=== PATIENT | female | born 1995 | race Caucasian/White ===

== ENCOUNTER 2018-11-30 00:35 | Emergency (ER) | payer MEDICAID ==
[~2018-11-30] VITALS: Ht 154.9 cm; Wt 100.4 kg
[2018-11-30 00:52] VITALS: Ht 154.9 cm; Wt 100.4 kg
[2018-11-30] MEDS ORDERED: ACET325T33 PO (06:02)
[2018-11-30] MEDS ORDERED: CEPH-443 PO (06:04)
[2018-11-30 06:34] VITALS: BP 113/74; PULSE 86; RESP 20
--- NOTE | 2018-12-13 07:22 | ERD ---
ER Documentation Chief Complaint Chief Complaint vag bleed tonight; LMP 09/18/18; stated 3mos HPI History of Present Illness: 23-year-old female with no past medical history coming in today with complaint of vaginal bleeding that started tonight. Patient reporting body with mild abdominal pain. Patient reports being approximately 3 months . No signs of anemia including palpitations, shortness of breath, weakness. No signs of hemorrhage: Patient is not soaking over more than 1 pad per hour. At home pharmacological/nonpharmacological treatment for symptoms: Denies Denies social concerns; Denies recent foreign travel ROS All systems reviewed and are negative except as per history of present illness. Medications Home Meds Active Scripts Ondansetron (Ondansetron Odt) 4 Mg Tab.rapdis, 4 MG PO Q6H PRN for NAUSEA AND/OR VOMITING, #10 TAB Prov:DISHIGRIKIANRANJITPYUR N PA-C 12/10/18 Nitrofurantoin Monohyd Macrocr* (Macrobid*) 100 Mg Capsr, 100 MG PO BID for 7 Days, CAP Prov:DISHIGRIKIANZEPYUR N PA-C 12/10/18 Cephalexin* (Keflex*) 500 Mg Capsule, 500 MG PO QID PRN for URINE INFECTION for 7 Days, CAP Prov:QUINN SMALL V WORK CAR OPERATOR 11/30/18 Acetaminophen* (Tylenol*) 325 Mg Tablet, 2 TAB PO Q8 PRN for PAIN AND OR ELEVATED TEMP, #20 TAB Prov:QUINN SMALL V WORK CAR OPERATOR 11/30/18 Allergies Allergies: Coded Allergies: No Known Allergy (Unverified , 11/30/18) PMhx/Soc Medical and Surgical Hx: pt denies Medical Hx, pt denies Surgical Hx Hx Alcohol Use: No Hx Substance Use: No Hx Tobacco Use: No Smoking Status: Never smoker FmHx Family History: No coronary disease Physical Exam Physical Exam const: No acute distress Head: Atraumatic Eyes: Normal Conjunctiva ENT: Normal External Ears, Nose and Mouth. Neck: Full range of motion. No meningismus. Resp: Clear to auscultation bilaterally Cardio: Regular rate and rhythm, no murmurs Abd: Soft, Tenderness to suprapubic, non distended. Normal bowel sounds. Patient obese. Unable to palpate fundus Skin: No petechiae or rashes Back: No midline or flank tenderness Ext: No cyanosis, or edema Neur: Awake and alert Psych: Normal Mood and Affect Results 24 hrs Laboratory Tests Test 11/30/18 03:50 White Blood Count 8.5 10^3/ul Red Blood Count 4.36 10^6/ul Hemoglobin 13.1 g/dl Hematocrit 39.1 % Mean Corpuscular Volume 89.7 fl Mean Corpuscular Hemoglobin 30.0 pg Mean Corpuscular Hemoglobin Concent 33.5 g/dl Red Cell Distribution Width 13.0 % Platelet Count 205 10^3/UL Mean Platelet Volume 11.4 fl Immature Granulocytes % 0.400 % Neutrophils % 73.0 % Lymphocytes % 19.8 % Monocytes % 5.7 % Eosinophils % 0.9 % Basophils % 0.2 % Nucleated Red Blood Cells % 0.0 /100WBC Immature Granulocytes # 0.030 10^3/ul Neutrophils # 6.2 10^3/ul Lymphocytes # 1.7 10^3/ul Monocytes # 0.5 10^3/ul Eosinophils # 0.1 10^3/ul Basophils # 0.0 10^3/ul Nucleated Red Blood Cells # 0.0 10^3/ul Urine Color RED Urine Clarity BLOODY Urine pH 6.0 Urine Specific [place] 1.030 Urine Ketones NEGATIVE mg/dL Urine Nitrite NEGATIVE mg/dL Urine Bilirubin 1+ mg/dL Urine Urobilinogen NEGATIVE mg/dL Urine Leukocyte Esterase 2+ Jose Luis/ul Urine Microscopic RBC > 182 /HPF Urine Microscopic WBC 49 /HPF Urine Squamous Epithelial Cells FEW /HPF Urine Bacteria FEW /HPF Urine Mucus MODERATE /HPF Urine Yeast (Budding) FEW /HPF Urine Hemoglobin 3+ mg/dL Urine Glucose NEGATIVE mg/dL Urine Total Protein 2+ mg/dl Beta HCG, Quantitative 06180.0 mIU/ml Procedures/MDM ED course includes a thorough examination and history. Medications: Acetaminophen Imaging: ob vaginal and abdominal ultrasound Labs: CBC, urinalysis, beta quantitative Low suspicion for life-threatening medical emergency. Low suspicion for gynecologic/obstetrical emergency requires hospitalization or immediate surgical intervention. Otherwise healthy patient presenting with constellation of symptoms likely representing vaginal bleeding during and urinary tract infection during as characterized by history, physical exam findings, imaging findings, lab findings. CBC:no e/o of systemic infection or severe anemia. Urinalysis showing WBCs, RBCs, bacteria, budding yeast hemoglobin. Beta quantitative is 16k , ultrasound imaging impression showing: IMPRESSION: Single live intrauterine gestation of approximately 13 weeks 6 days. Estimated date of delivery 06/01/2019. No apparent complications. RPTAT: HJBB x-[place]ato Bowns, Physician No respiratory distress, otherwise relatively well appearing and nontoxic. Patient educated on diagnoses, prescriptions, follow-up care, return precautions. Strict return precautions given for worsening condition; questions answered discharge. Disposition for discharge with followup in 2 days with PCP/clinic/electrician technician; strict return precautions given for signs of hemorrhage in severe abdominal pain or fever.. Departure Diagnosis: Primary Impression: UTI (urinary tract infection) during Trimester: unspecified trimester Qualified Codes: O23.40 - Unspecified infection of urinary tract in , unspecified trimester Additional Impression: Vaginal bleeding in patient at less than 20 weeks ges... Condition: Stable Patient Instructions: Understanding Urinary Tract Infections (UTIs), Bleeding During Early Referrals: [facility] CL[facility] YOU HAVE RECEIVED A MEDICAL SCREENING EXAM AND THE RESULTS INDICATE THAT YOU DO NOT HAVE A CONDITION THAT REQUIRES URGENT TREATMENT IN THE EMERGENCY DEPARTMENT. FURTHER EVALUATION AND TREATMENT OF YOUR CONDITION CAN WAIT UNTIL YOU ARE SEEN IN YOUR DOCTORS OFFICE WITHIN THE NEXT 1-2 DAYS. IT IS YOUR RESPONSIBILITY TO MAKE AN APPOINTMENT FOR FOLOW-UP CARE. IF YOU HAVE A PRIMARY DOCTOR --you should call your primary doctor and schedule an appointment IF YOU DO NOT HAVE A PRIMARY DOCTOR YOU CAN CALL OUR PHYSICIAN REFERRAL HOTLINE AT IF YOU CAN NOT AFFORD TO SEE A PHYSICIAN YOU CAN CHOSE FROM THE FOLLOWING [facility] [address] [facility] [address] [facility]. [facility] [address] [facility]. [facility] [address] [facility]. [facility] [address] [facility]. [facility]. [address] [facility]. [facility] YOU HAVE RECEIVED A MEDICAL SCREENING EXAM AND THE RESULTS INDICATE THAT YOU DO NOT HAVE A CONDITION THAT REQUIRES URGENT TREATMENT IN THE EMERGENCY DEPARTMENT. FURTHER EVALUATION AND TREATMENT OF YOUR CONDITION CAN WAIT UNTIL YOU ARE SEEN IN YOUR DOCTORS OFFICE WITHIN THE NEXT 1-2 DAYS. IT IS YOUR RESPONSIBILITY TO MAKE AN APPOINTMENT FOR FOLOW-UP CARE. IF YOU HAVE A PRIMARY DOCTOR --you should call your primary doctor and schedule and appointment IF YOU DO NOT HAVE A PRIMARY DOCTOR YOU CAN CALL OUR PHYSICIAN REFERRAL HOTLINE AT . IF YOU CAN NOT AFFORD TO SEE A PHYSICIAN YOU CAN CHOSE FROM THE FOLLOWING [facility] INSTITUTIONS: [facility] [address] [place] [address] [facility] [address] [place] [address] [facility] [address] [place] [address] [place] [address] [facility] [address] [place] [address] OFFICE FAX SILVIA DOUGHERTY [address] [place] [address] [address] LEW [place] [address] [place] [address] JESSY VALEPINEDA [address] [facility], [address], [facility] [address] [address] [address] [place] [address] [facility] [address] [place] [address] [phone] [facility] [address] - NOEMI PINA [address], [facility] [address] [place] [address] [facility] [address], [facility] [id number] [place] [place] [address] [place] [address] Additional Instructions: Thank you very much for allowing us to participate in your care. Your health and safety is our top priority at [facility]. It is important to read all discharge instructions and education provided in your discharge packet. Call your BUYER TODAY for an appointment during the next 2-3 days and bring all the information and medications prescribed. Have prescriptions filled and follow precisely the directions on the label. If the symptoms get worse and your provider is unavailable, return to the Emergency Department immediately. QUINN SMALL NP Dec 13, 2018 07:22
== END 2018-11-30 06:35 | disposition home or self-care (01) ==
LOC: FTE 00:35
DX: O23.41 Unspecified infection of urinary tract in pregnancy, first trimester (principal); Z3A.13 13 weeks gestation of pregnancy
CPT/HCPCS: 36415; 76801; 81001; 84702; 85025; 86900; 86901; Z7502

== ENCOUNTER 2018-12-09 23:09 | Emergency (ER) | payer MEDICAID ==
[~2018-12-09] VITALS: Ht 157.5 cm; Wt 101.3 kg
[~2018-12-09 23:09] MED LIST: ACET325T33 PO; CEPH-443 PO
[2018-12-09 23:11] VITALS: Ht 157.5 cm; Wt 101.3 kg
[2018-12-10] MEDS ORDERED: ONDANSETRON 4 MG INJ IV STA (02:43)
[2018-12-10] MEDS ORDERED: SOD CHLORIDE 0.9% 1,000 ML IV STA (02:43)
[2018-12-10] MEDS ORDERED: NITR-58 PO (06:15)
[2018-12-10] MEDS ORDERED: ONDA4TAB14 PO (06:19)
--- NOTE | 2018-12-10 06:25 | ERD ---
ER Documentation Chief Complaint Chief Complaint vag bleeding x 3 pads today; 3 months ; vomiting HPI This is a 23-year-old female at approximately 15 weeks gestation who presents with intermittent vaginal bleeding times 3 weeks. Patient states she has gone through about 3 pads in total. Patient also reports multiple episodes of nonbilious, nonbloody emesis. She reports associated mid lower abdominal cramping. Patient states she was last seen here November, where she was admitted with a UTI. Patient states she finished her antibiotics but still having urinary frequency, urgency type symptoms. Denies any fevers, chills, flank pain. ROS All systems reviewed and are negative except as per history of present illness. Medications Home Meds Active Scripts Ondansetron (Ondansetron Odt) 4 Mg Tab.rapdis, 4 MG PO Q6H PRN for NAUSEA AND/OR VOMITING, #10 TAB Prov:DISHIGRIKIAN,ZEPYUR N PA-C 12/10/18 Nitrofurantoin Monohyd Macrocr* (Macrobid*) 100 Mg Capsr, 100 MG PO BID for 7 Days, CAP Prov:DISHIGRIKIAN,ZEPYUR N PA-C 12/10/18 Cephalexin* (Keflex*) 500 Mg Capsule, 500 MG PO QID PRN for URINE INFECTION for 7 Days, CAP Prov:QUINN SMALL V WEAVE DEFECT CHARTING CLERK 11/30/18 Acetaminophen* (Tylenol*) 325 Mg Tablet, 2 TAB PO Q8 PRN for PAIN AND OR ELEVATED TEMP, #20 TAB Prov:QUINN SMALL V WEAVE DEFECT CHARTING CLERK 11/30/18 Allergies Allergies: Coded Allergies: No Known Allergy (Unverified , 11/30/18) PMhx/Soc Medical and Surgical Hx: pt denies Medical Hx, pt denies Surgical Hx History of Surgery: No Anesthesia Reaction: No Hx Neurological Disorder: No Hx Respiratory Disorders: No Hx Cardiac Disorders: No Hx Miscellaneous Medical Probl: No Hx Alcohol Use: No Hx Substance Use: No Hx Tobacco Use: No Smoking Status: Never smoker Physical Exam Vitals Vital Signs Date Temp Pulse Resp B/P (MAP) Pulse Ox O2 O2 Flow FiO2 Time Delivery Rate 12/09/18 97.8 86 20 107/54 97 23:11 (71) Physical Exam Const: No acute distress Head: Atraumatic Eyes: Normal Conjunctiva ENT: Normal External Ears, Nose and Mouth. Neck: Full range of motion. No meningismus. Resp: Clear to auscultation bilaterally Cardio: Regular rate and rhythm, no murmurs Abd: Soft, + mid suprapubic tenderness to palpation. Negative McBurney's. Negative Davis's. Non distended. Normal bowel sounds Skin: No petechiae or rashes Back: No midline or flank tenderness Ext: No cyanosis, or edema Neur: Awake and alert Psych: Normal Mood and Affect Result Diagram: 12/10/18 0302 12/10/18 0302 Results 24 hrs Laboratory Tests Test 12/10/18 03:02 White Blood Count 9.4 10^3/ul Red Blood Count 4.24 10^6/ul Hemoglobin 12.4 g/dl Hematocrit 38.3 % Mean Corpuscular Volume 90.3 fl Mean Corpuscular Hemoglobin 29.2 pg Mean Corpuscular Hemoglobin Concent 32.4 g/dl Red Cell Distribution Width 13.3 % Platelet Count 183 10^3/UL Mean Platelet Volume 11.4 fl Immature Granulocytes % 0.400 % Neutrophils % 75.7 % Lymphocytes % 17.0 % Monocytes % 6.1 % Eosinophils % 0.7 % Basophils % 0.1 % Nucleated Red Blood Cells % 0.0 /100WBC Immature Granulocytes # 0.040 10^3/ul Neutrophils # 7.1 10^3/ul Lymphocytes # 1.6 10^3/ul Monocytes # 0.6 10^3/ul Eosinophils # 0.1 10^3/ul Basophils # 0.0 10^3/ul Nucleated Red Blood Cells # 0.0 10^3/ul Urine Color YELLOW Urine Clarity CLOUDY Urine pH 6.0 Urine Specific [place] 1.014 Urine Ketones NEGATIVE mg/dL Urine Nitrite NEGATIVE mg/dL Urine Bilirubin NEGATIVE mg/dL Urine Urobilinogen NEGATIVE mg/dL Urine Leukocyte Esterase 2+ Jose Luis/ul Urine Microscopic RBC 14 /HPF Urine Microscopic WBC 13 /HPF Urine Squamous Epithelial Cells FEW /HPF Urine Bacteria FEW /HPF Urine Mucus FEW /HPF Urine Hemoglobin 3+ mg/dL Urine Glucose NEGATIVE mg/dL Urine Total Protein NEGATIVE mg/dl Sodium Level 140 mmol/L Potassium Level 4.0 mmol/L Chloride Level 108 mmol/L Carbon Dioxide Level 21 mmol/L Anion Gap 11 Blood Urea Nitrogen 3 mg/dl Creatinine 0.42 mg/dl Est Glomerular Filtrat Rate mL/min > 60 mL/min Glucose Level 95 mg/dl Calcium Level 9.9 mg/dl Total Bilirubin 0.3 mg/dl Direct Bilirubin 0.00 mg/dl Indirect Bilirubin 0.3 mg/dl Aspartate Amino Transf (AST/SGOT) 11 IU/L Alanine Aminotransferase (ALT/SGPT) < 6 IU/L Alkaline Phosphatase 70 IU/L Total Protein 7.9 g/dl Albumin 4.0 g/dl Globulin 3.90 g/dl Albumin/Globulin Ratio 1.02 Beta HCG, Quantitative 24588.0 mIU/ml Current Medications Medications Dose Sig/Marcos Start Time Status Last (Trade) Ordered Route PRN Stop Time Admin Dose Reason Admin Sodium 1,000 ml @ Q1H STAT 12/10/18 DC 12/10/18 Chloride 1,000 mls/hr IV 02:43 03:19 12/10/18 03:42 Ondansetron 4 mg ONCE STAT 12/10/18 DC 12/10/18 HCl (Zofran IV 02:43 03:16 Inj) 12/10/18 02:45 Procedures/MDM LABS CBC: no e/o of systemic infection or severe anemia CMP: no e/o severe acidosis, alkalosis, renal failure, diabetic ketoacidosis, liver disease Urine: 2+ leuk esterase, hematuria, pyuria Ucx: pending Blood type: B positive DIAGNOSTIC IMAGING: PROCEDURE: US OB CLINICAL INDICATION: . Vaginal bleeding. TECHNIQUE: Multiple transabdominal sonographic images of the pelvis and gravid uterus were obtained. The images were reviewed on a PACS workstation. COMPARISON: US PELVIS 11/30/2018 FINDINGS: Cervix: Not visualized Gestation: Single live intrauterine gestation. Cardiac activity: 150 beats per minute. Presentation: Variable Placenta: Location: Posterior Appearance: No visualized placental abruption or previa. Note is made of persistent chorioamniotic separation seen anteriorly. Amniotic Fluid: Again appears adequate with MVP =3.2 cm Measurements: BPD = 3.1 cm, 15 weeks 5 days HC = 11.1 cm, 15 weeks 2 days AC = 8.8 cm, 15 weeks 0 days FL = 1.5 cm, 14 weeks 3 days Gestational Age: AUA estimated gestational age: 15 weeks 1 days LMP estimated gestational age: 11 weeks 6 days AUA estimated date of delivery: 06/02/2019, which is similar to the estimated de liver date (06/01/2019) based on previous ultrasound The EFW = 106.4 g Structures: Not evaluated IMPRESSION: 1. Single live intrauterine gestation of 15 weeks 1 days by ultrasound criteri a, with estimated date of delivery 06/02/2019 that is similar to the previous ultrasound. 2. No visualized placenta previa or placental abruption, the latter of which may initially be inapparent. Note is made of persistent chorioamniotic separation which can still be seen at this gestational age and for which attention on follow-up is recommended ED COURSE: The patient was given IV fluids, Zofran The medication was well tolerated and the patient had market improvement in symptoms. The patient remained stable throughout ED course. MEDICAL DECISION MAKING: This is a 23-year-old female at 15 weeks gestation and presents with vaginal bleeding, nausea and urinary symptoms. The differential diagnosis includes threatened , incomplete/complete , missed , ectopic and less likely gestational trophoblastic disease and choriocarcinoma. Vital signs are stable. Labs without any signs of dehydration or significant anemia. US showed a single live IUP at 15 weeks gestation. UA does shows recurrence of a urine infection. Patient was last treated with K eflex therefore will proceed with a trial of Macrobid. She has no signs or symptoms concerning for pyelonephritis. Pt is stable for discharge and outpatient management. She was given a copy of her results and told to follow up with sugar coating hand in 48 hours. Strict return precautions given. PRESCRIPTIONS: Zofran, Macrobid SPECIALIST FOLLOW UP RECOMMENDED: None Patient has been advised to follow up with primary care in 1-2 days. Departure Diagnosis: Primary Impression: UTI (urinary tract infection) Urinary tract infection type: acute cystitis Hematuria presence: with hematuria Qualified Codes: N30.01 - Acute cystitis with hematuria Additional Impression: Vaginal bleeding Condition: Stable Patient Instructions: Understanding Urinary Tract Infections (UTIs), When Your Child Has a Urinary Tract Infection (UTI) Referrals: FOOD SERVICE ORDER [place] [address] [facility] [address] [place] [address]ABUSLEME [address] [address] [address] LEW, NINI [address] [place] [address] DR DUKE, HESHMAT [address] [address] [facility], [address], [place] [address] DR DAMON, [facility] [address] [place] [address] [facility] [address] [place] [address] [facility] [id number] - [address] ABARCA, NOEMI [address], [facility] [address] [address] SERRANO, CUATE [address] [facility]. [address], [facility] [address] DR CELAYA, FARID [address] [place] [address] Additional Instructions: Paciente aconseja volver a Departamento de urgencias inmediatamente para sntomas nuevos o que empeoran . Paciente aconseja posteriores con el PCP en 1-2 kern. Si el paciente no tiene ninguna de atencin primaria pueden seguir con [facility] [address] [place] [address] o LAC + [address] [address] MORENA OSHEA PA-C Dec 10, 2018 06:25
[2018-12-10 06:32] VITALS: BP 116/58; PULSE 77; RESP 17
== END 2018-12-10 06:33 | disposition home or self-care (01) ==
LOC: FTE 23:09
DX: O23.42 Unspecified infection of urinary tract in pregnancy, second trimester (principal); Z3A.15 15 weeks gestation of pregnancy
CPT/HCPCS: 36415; 76801; 80053; 81001; 84702; 85025; 86900; 86901; 87086; 96361; 96374; J2405; J7030; Z7502

== ENCOUNTER 2019-01-15 16:46 | Emergency (ER) | payer MEDICAID ==
[~2019-01-15] VITALS: Ht 152.4 cm; Wt 101.4 kg
[~2019-01-15 16:46] MED LIST changes: +NITR-58 PO; +ONDA4TAB14 PO
[2019-01-15 17:00] VITALS: BP 105/51; PULSE 83; RESP 20; Ht 152.4 cm; Wt 101.4 kg
[2019-01-15] MEDS ORDERED: ONDANSETRON (ODT) 4 MG TAB ODT STA (18:37)
[2019-01-15] MEDS ORDERED: DOXY1TAB3 PO (21:12)
--- NOTE | 2019-01-15 21:18 | ERD ---
ER Documentation Chief Complaint Chief Complaint Complains of vomiting and 17 weeks HPI This is a 23-year-old female patient presents the emergency room with complaint of nausea and vomiting over the last 3 to 4 months. Patient states that she only vomits when she drives in the car and only has nausea when she is brushing her teeth. States she is able to eat and drink without any without any nausea or vomiting, she has steadily been gaining weight during her . Dates her OB has prescribed her antinausea medications but she does not know the name and states she rarely uses them. Denies vaginal bleeding, no vaginal pain, no cramping, no fevers, NAD. ROS All systems reviewed and are negative except as per history of present illness. Medications Home Meds Active Scripts Doxylamine/Pyridoxine Hcl (DICLEGIS DR 10-10 MG TABLET) 1 Each Tablet.dr, 1 TAB PO TID for 15 Days, #60 TAB Take 2 tabs before bedtime if nausea persist after 2 days increase to 1 tab in the morning and 2 tabs at bedtime, if symptoms persist you may advance to 1 tab in the morning 1 tab in the afternoon and 2 tabs in the evening. Prov:ROBERTA DALTON POLICY CHECKER 01/15/19 Ondansetron (Ondansetron Odt) 4 Mg Tab.rapdis, 4 MG PO Q6H PRN for NAUSEA AND/OR VOMITING, #10 TAB Prov:RODGERIGRMORENA STEVENSON-C 12/10/18 Nitrofurantoin Monohyd Macrocr* (Macrobid*) 100 Mg Capsr, 100 MG PO BID for 7 Days, CAP Prov:MORENA OSHEA-C 12/10/18 Cephalexin* (Keflex*) 500 Mg Capsule, 500 MG PO QID PRN for URINE INFECTION for 7 Days, CAP Prov:QUINN SMALL NP 11/30/18 Acetaminophen* (Tylenol*) 325 Mg Tablet, 2 TAB PO Q8 PRN for PAIN AND OR ELEVATED TEMP, #20 TAB Prov:QUINN SMALL NP 11/30/18 Allergies Allergies: Coded Allergies: No Known Allergy (Unverified , 11/30/18) PMhx/Soc Medical and Surgical Hx: pt denies Medical Hx, pt denies Surgical Hx History of Surgery: No Anesthesia Reaction: No Hx Neurological Disorder: No Hx Respiratory Disorders: No Hx Cardiac Disorders: No Hx Miscellaneous Medical Probl: No Hx Alcohol Use: No Hx Substance Use: No Hx Tobacco Use: No Smoking Status: Never smoker FmHx Family History: No diabetes, No coronary disease, No other Physical Exam Vitals Vital Signs Date Temp Pulse Resp B/P (MAP) Pulse Ox O2 O2 Flow FiO2 Time Delivery Rate 01/15/19 97.3 83 20 105/51 98 17:00 (69) Physical Exam Const: No acute distress Head: Atraumatic Eyes: Normal Conjunctiva, PERRL ENT: Normal External Ears, Nose and Mouth. Neck: Full range of motion. No meningismus. No lymphadenopathy. Resp: Clear to auscultation bilaterally Cardio: Regular rate and rhythm, no murmurs Abd: Soft, non tender, non distended. Normal bowel sounds. Skin: No petechiae or rashes, skin turgor <2 sec Back: No midline or flank tenderness Ext: No cyanosis, or edema Neur: Awake and alert Psych: Normal Mood and Affect Results 24 hrs Laboratory Tests Test 01/15/19 18:59 Bedside Urine pH (LAB) 6.0 Bedside Urine Protein (LAB) Negative Bedside Urine Glucose (UA) Negative Bedside Urine Ketones (LAB) Negative Bedside Urine Blood Negative Bedside Urine Nitrite (LAB) Negative Bedside Urine Leukocyte Esterase (L Negative Current Medications Medications Dose Sig/Marcos Start Time Status Last (Trade) Ordered Route PRN Stop Time Admin Dose Reason Admin Ondansetron 4 mg ONCE STAT 01/15/19 DC 01/15/19 HCl (Zofran ODT 18:37 18:51 Odt) 01/15/19 18:40 Procedures/MDM Is a 23-year-old female patient who presents to emergency room stating she is 17 weeks and has been having nausea and vomiting since the beginning of her . Patient is primiparous. ED COURSE: The patient was stable throughout ED course. DIAGNOSTIC IMAGING: None indicated at this time PROCEDURES: None. MEDICATIONS GIVEN: Zofran Patient tolerated medication well with no adverse reactions. MDM: Patient is well-appearing, normal vital signs, states she only vomits in the car and gets nauseated when brushing her teeth. States she has 3-4 meals per day and is able to maintain her hydration without any difficulty. Patient does not appear to be in need of IV rehydration at this time as she was observed here in the ED over 1 hour to drink water without vomiting. Patient appears to be able to maintain oral hydration adequate to prevent dehydration. Patient was instructed on antinausea techniques such as use of melina, melina sodas, small frequent meals, frequent oral intake of fluids, use of diplegia's for nausea. Pt was instructed to follow-up closely with her FRONT OFFICE DEVELOPER. DISPOSITION: The patient has been discharge home to follow-up with community physician. Patient passes p.o. challenge, able to drink water without any vomiting during ED course. Departure Diagnosis: Primary Impression: Nausea and vomiting Condition: Stable Patient Instructions: Comfort Tips During , Adapting to : Second Trimester Referrals: [facility] YOU HAVE RECEIVED A MEDICAL SCREENING EXAM AND THE RESULTS INDICATE THAT YOU DO NOT HAVE A CONDITION THAT REQUIRES URGENT TREATMENT IN THE EMERGENCY DEPARTMENT. FURTHER EVALUATION AND TREATMENT OF YOUR CONDITION CAN WAIT UNTIL YOU ARE SEEN IN YOUR DOCTORS OFFICE WITHIN THE NEXT 1-2 DAYS. IT IS YOUR RESPONSIBILITY TO MAKE AN APPOINTMENT FOR FOLOW-UP CARE. IF YOU HAVE A PRIMARY DOCTOR --you should call your primary doctor and schedule an appointment IF YOU DO NOT HAVE A PRIMARY DOCTOR YOU CAN CALL OUR PHYSICIAN REFERRAL HOTLINE AT IF YOU CAN NOT AFFORD TO SEE A PHYSICIAN YOU CAN CHOSE FROM THE FOLLOWING [facility] [address]. [facility] [address] [facility] [address] [facility] [facility] [address] [facility]. [facility] [address] [facility]. [facility]. [address] Additional Instructions: Thank you very much for allowing us to participate in your care. Your health and safety is our top priority at [facility]. Call your primary care doctor TOMORROW for an appointment during the next 2-4 days and bring all the information and medications prescribed. Have prescriptions filled and follow precisely the directions on the label. If the symptoms get worse and your provider is unavailable, return to the Emergency Department immediately. FOLLOW-UP WITH YOUR REAL ESTATE AGENCY PRINCIPAL IF DICLEGIS DOES NOT WORK FOR YOUR NAUSEA. RETURN TO THE ER IF NAUSEA CONTINUES AND YOU ARE UNABLE TO EAT OR DRINK WITHOUT VOMITING. TAKE SMALL FREQUENT SIPS OF WATER AND SMALL FREQUENT MEALS. TRY MELINA CHEWS, MELINA DARIO, AND HAVING SMALL SNACK EARLY IN THE MORNING USE DICLEGIS DIRECTED. ROBERTA DALTON NP January 15, 2019 21:18
== END 2019-01-15 21:22 | disposition home or self-care (01) ==
LOC: FTE 16:46
DX: O21.9 Vomiting of pregnancy, unspecified (principal); Z3A.17 17 weeks gestation of pregnancy
CPT/HCPCS: 81003; Z7502; Z7610; 99283